=== PATIENT | male | born 1940 | race Two or more races ===

== ENCOUNTER 2022-05-03 11:00 | Outpatient (CLI) | payer MEDICARE, BC ==
[2022-05-03] MEDS ORDERED: CADEXOMER IODINE UD 5 GM TUBE ONE (11:43)
== END 2022-05-03 23:59 | disposition home or self-care (01) ==
LOC: WOU 11:00
PROVIDERS: ATTEND Specialist
DX: I87.312 Chronic venous hypertension (idiopathic) with ulcer of left lower extremity (principal); L97.322 Non-pressure chronic ulcer of left ankle with fat layer exposed; Z79.82 Long term (current) use of aspirin
CPT/HCPCS: 29581; A6207

== ENCOUNTER 2022-05-10 10:50 | Outpatient (CLI) | payer MEDICARE, BC | END 2022-05-10 23:59 | disposition home or self-care (01) | LOC: WOU 10:50 | PROVIDERS: ATTEND Specialist | DX: I87.312 Chronic venous hypertension (idiopathic) with ulcer of left lower extremity (principal); L97.322 Non-pressure chronic ulcer of left ankle with fat layer exposed; Z79.82 Long term (current) use of aspirin | CPT/HCPCS: 11042; A6207 ==

== ENCOUNTER 2022-05-17 10:45 | Outpatient (CLI) | payer MEDICARE, BC ==
[2022-05-17] MEDS ORDERED: UREA 10% -AHA 4% CREAM 57 GM TUBE ONE (11:28)
== END 2022-05-17 23:59 | disposition home or self-care (01) ==
LOC: WOU 10:45
PROVIDERS: ATTEND Specialist
DX: I87.312 Chronic venous hypertension (idiopathic) with ulcer of left lower extremity (principal); L97.322 Non-pressure chronic ulcer of left ankle with fat layer exposed; Z79.82 Long term (current) use of aspirin
CPT/HCPCS: 29581; A6207

== ENCOUNTER 2022-05-24 11:10 | Outpatient (CLI) | payer MEDICARE, BC | END 2022-05-24 23:59 | disposition home or self-care (01) | LOC: WOU 11:10 | PROVIDERS: ATTEND Specialist | DX: I87.312 Chronic venous hypertension (idiopathic) with ulcer of left lower extremity (principal); L97.322 Non-pressure chronic ulcer of left ankle with fat layer exposed; Z79.82 Long term (current) use of aspirin | CPT/HCPCS: 29581; A6207 ==

== ENCOUNTER 2022-05-31 11:00 | Outpatient (CLI) | payer MEDICARE, BC | END 2022-05-31 23:59 | disposition home or self-care (01) | LOC: WOU 11:00 | PROVIDERS: ATTEND Specialist | DX: I87.331 Chronic venous hypertension (idiopathic) with ulcer and inflammation of right lower extremity (principal); L97.322 Non-pressure chronic ulcer of left ankle with fat layer exposed; Z79.82 Long term (current) use of aspirin | CPT/HCPCS: 29581; A6207 ==

== ENCOUNTER 2022-06-07 10:55 | Outpatient (CLI) | payer MEDICARE, BC ==
[2022-06-07] MEDS ORDERED: UREA 10% -AHA 4% CREAM 57 GM TUBE ONE (11:29)
== END 2022-06-07 23:59 | disposition home or self-care (01) ==
LOC: WOU 10:55
PROVIDERS: ATTEND Specialist
DX: I87.332 Chronic venous hypertension (idiopathic) with ulcer and inflammation of left lower extremity (principal); L97.322 Non-pressure chronic ulcer of left ankle with fat layer exposed
CPT/HCPCS: 11042; A6207

== ENCOUNTER 2022-06-14 10:30 | Outpatient (CLI) | payer MEDICARE, BC ==
[2022-06-14] MEDS ORDERED: HYDROCORTISONE 1% CREAM 28.35 GM TUBE TP ONE (12:00)
[2022-06-14] MEDS ORDERED: UREA 10% -AHA 4% CREAM 57 GM TUBE ONE (12:00)
== END 2022-06-14 23:59 | disposition home or self-care (01) ==
LOC: WOU 10:30
PROVIDERS: ATTEND Specialist
DX: I87.332 Chronic venous hypertension (idiopathic) with ulcer and inflammation of left lower extremity (principal); L97.322 Non-pressure chronic ulcer of left ankle with fat layer exposed
CPT/HCPCS: 29581; 87077; 87070; A6197; A6207

== ENCOUNTER 2022-06-21 10:50 | Outpatient (CLI) | payer MEDICARE, BC ==
[2022-06-21] MEDS ORDERED: UREA 10% -AHA 4% CREAM 57 GM TUBE ONE (11:26)
[2022-06-21] MEDS ORDERED: HYDROCORTISONE 1% CREAM 28.35 GM TUBE TP ONE (11:26)
== END 2022-06-21 23:59 | disposition home or self-care (01) ==
LOC: WOU 10:50
PROVIDERS: ATTEND Specialist
DX: I87.332 Chronic venous hypertension (idiopathic) with ulcer and inflammation of left lower extremity (principal); L97.322 Non-pressure chronic ulcer of left ankle with fat layer exposed
CPT/HCPCS: 29581; A6207

== ENCOUNTER 2022-06-28 11:00 | Outpatient (CLI) | payer MEDICARE, BC | END 2022-06-28 23:59 | disposition home or self-care (01) | LOC: WOU 11:00 | PROVIDERS: ATTEND Specialist | DX: I87.2 Venous insufficiency (chronic) (peripheral) (principal); Z87.2 Personal history of diseases of the skin and subcutaneous tissue | CPT/HCPCS: 29581; A6207 ==